=== PATIENT | female | born 1945 | race Caucasian/White ===

== ENCOUNTER 2021-03-06 07:36 | Observation (INO) ==
[2021-03-06] MEDS ORDERED: CeFAZolin Syr 2,000MG/20 ML 2,000 MG/20 ML SYRINGE IVPB ONE (08:05)
[2021-03-06] MEDS ORDERED: Lidocaine HCL 4 ML Topical Solution (Laryng-O-Jet Kit Sterile Pak) TP ONE (08:10)
[2021-03-06] MEDS ORDERED: *HR* Succinylcholine 200 MG/10 ML VIAL IVP ONE (08:10)
[2021-03-06] MEDS ORDERED: Lidocaine -MPF 2% 5 ML VIAL ONE (08:10)
[2021-03-06] MEDS ORDERED: Ondansetron 4 MG/2 ML VIAL ONE ×2 (08:10→12:39)
[2021-03-06] MEDS ORDERED: *HR* FentaNYL (PF) 100 MCG/2 ML VIAL ONE (08:10)
[2021-03-06] MEDS ORDERED: *HR* Propofol 200 MG/20 ML VIAL IVP ONE (08:11)
[2021-03-06] MEDS ORDERED: *HR* Midazolam HCl 2 MG/2 ML VIAL ONE (08:11)
[2021-03-06] MEDS ORDERED: Ringers Solution, Lactated 1,000 ML IVC SCH ×2 (08:15→13:06)
[2021-03-06] MEDS ORDERED: SODIUM CHLORIDE 0.9% IVPB ONE (08:25)
[2021-03-06] MEDS ORDERED: DESMOPRESSIN ACETATE IVPB ONE (08:25)
[2021-03-06] MEDS ORDERED: Famotidine 20 MG TABLET PO ONE (08:30)
[2021-03-06] MEDS ORDERED: ROPIVACAINE/PF/NS 0.25% 1 EACH SYRINGE INTRAART ONE (08:54)
[2021-03-06] MEDS ORDERED: Ropivacaine/PF 0.5% 30 ML VIAL ONE (08:54)
[2021-03-06] MEDS ORDERED: *HR* HYDROmorphone PF 0.5 MG/0.5 ML SYRINGE IVP PRN (09:24)
[2021-03-06] MEDS ORDERED: Ondansetron 4 MG/2 ML VIAL IVP PRN (09:24)
[2021-03-06] MEDS ORDERED: *HR* OxyCODONE Immed Rel 5 MG TABLET PO PRN ×2 (09:24→13:13)
[2021-03-06] MEDS ORDERED: Vancomycin 1,000 MG VIAL ONE (10:24)
[2021-03-06] MEDS ORDERED: Tranexamic Acid 1,000 MG/10 ML VIAL ONE (11:22)
[2021-03-06] MEDS ORDERED: EPINEPHrine 1 MG/ML VIAL ONE (11:32)
[2021-03-06 12:42] LABS: Hemoglobin 12.5 g/dL (11.5-15.4); Mean Corpuscular HGB Conc 32.9 g/dL (31.6-35.5); Mean Corpuscular Hemoglobin 32.3 pg (28.0-33.3); Mean Corpuscular Volume 98.2 fL (83.0-100.0); Mean Platelet Volume 10.1 fL (9.4-12.4); Platelet Count 222 K/mcL (140-400); Red Blood Count 3.87 M/mcL (3.82-4.97); Red Cell Distribution Width 12.9 % (11.5-14.5); White Blood Count 9.1 K/mcL (4.3-11.1)
[2021-03-06] MEDS ORDERED: Ondansetron ODT 4 MG TAB.RAPDIS SL PRN (12:58)
[2021-03-06] MEDS ORDERED: Naloxone 0.4 MG/ML INJ IVP PRN (12:58)
[2021-03-06] MEDS: Ketorolac 30 MG/ML VIAL IVP SCH ×2 (18:16→23:31)
[2021-03-06] MEDS: Acetaminophen 325 MG TABLET PO SCH ×2 (18:16→23:31)
[2021-03-06] MEDS: *HR* OxyCODONE Immed Rel 5 MG TABLET PO PRN (19:46)
[2021-03-06] MEDS: CeFAZolin 2,000 MG/120 ML BAG IVPB SCH (19:49)
[2021-03-07] MEDS: *HR* OxyCODONE Immed Rel 5 MG TABLET PO PRN ×3 (01:56→16:24)
[2021-03-07] MEDS: CeFAZolin 2,000 MG/120 ML BAG IVPB SCH (02:09)
[2021-03-07 05:17] LABS: Hematocrit 32.9 % (35.3-44.9); Mean Corpuscular HGB Conc 32.2 g/dL (31.6-35.5); Mean Corpuscular Hemoglobin 31.8 pg (28.0-33.3); Mean Corpuscular Volume 98.8 fL (83.0-100.0); Mean Platelet Volume 10.3 fL (9.4-12.4); Platelet Count 216 K/mcL (140-400); Red Blood Count 3.33 M/mcL (3.82-4.97); Red Cell Distribution Width 12.6 % (11.5-14.5); White Blood Count 10.7 K/mcL (4.3-11.1)
[2021-03-07 05:21] LABS: Hemoglobin 10.6 g/dL (11.5-15.4)
[2021-03-07] MEDS: Acetaminophen 325 MG TABLET PO SCH ×2 (06:06→08:22)
[2021-03-07] MEDS: Ketorolac 30 MG/ML VIAL IVP SCH ×2 (06:06→08:23)
[2021-03-07 11:42] VITALS: BP 162/73; PULSE 77; TEMP 97.7; O2SAT 100
== END 2021-03-07 16:34 | disposition home or self-care (01) ==
LOC: 4WAOSI 07:36 → SDCAOSI 07:36 → 4WAOSI 13:32
PROVIDERS: ADMIT Orthopaedic Surgery; ATTEND Orthopaedic Surgery